=== PATIENT | male | born 1970 | race Caucasian/White ===

== ENCOUNTER → 2020-04-03 | Outpatient (CLI) | payer OTHER ==
--- NOTE | 2020-04-03 13:20 | CT ---
EXAMINATION TYPE: CT facial bones wo con DATE OF EXAM: 04/03/2020 COMPARISON: None HISTORY: ameloblastoma left mandible CT DLP: 885.9 mGycm Automated exposure control for dose reduction was used. TECHNIQUE: CT scan of the sinuses is performed without contrast, axial images are obtained, coronal r eformatted images are also reviewed. FINDINGS: The left posterior alveolus and body of the mandible demonstrates a unilocular lucent expansile lesio n measuring 2.8 x 1.8 x 1.9 cm AP, transverse, and craniocaudal (3:17, 6:26). This lesion is centered around the left mandibular first molar, and spans from the second premolar to the level of the secon d molar. There is root blunting/resorption of the first and second left left mandibular molars. There is loss of the cortex anterolaterally (3:18, 4:18), however evaluation of involvement of the adjacen t soft tissues is limited without intravenous contrast. All of the mandibular and maxillary teeth genaro ear erupted. No lymphadenopathy is seen. There are 3 stones within the right submandibular gland and [place]'s duct measuring 8 x 7 mm (3:15), 5 mm (3:12), and 1 mm (3:10). Tiny calcifications are seen within the bilateral parotid glands. The visualized parotid glands and submandibular glands are grossly symmetric with no significant asymmetr y or inflammatory stranding. The paranasal sinuses demonstrate mucosal thickening with obstruction of the bilateral ostiomeatal co mplexes. There is mucosal thickening of the ethmoid air cells. There is nonpneumatization of the righ t frontal sinus. Visualized portion of mastoid air cells show no abnormal opacification. The globes are grossly symme tric. IMPRESSION: 1. Left mandibular body unilocular expansile lytic lesion measuring 2.8 x 1.8 x 1.9 cm, centered arou nd the left mandibular first molar, as described above. Findings would be consistent with ameloblasto ma, although differential includes additional unilocular pericoronal lesions and correlation with pat hology is recommended. 2. Sialolithiasis of the right submandibular gland and parotid glands. No evidence of sialoadenitis.
== END | disposition home or self-care (01) ==
LOC: RADCTMAIN 06:35
PROVIDERS: ATTEND Dentist Oral and Maxillofacial Pathology
DX: M89.9 Disorder of bone, unspecified (principal); K11.5 Sialolithiasis
CPT/HCPCS: 70486

== ENCOUNTER → 2020-10-23 | Outpatient (CLI) | payer OTHER ==
--- NOTE | 2020-10-23 21:50 | CT ---
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 CT DLP: 588 mGycm. Automated Exposure Control for Dose Reduction was Utilized. TECHNIQUE: CT scan of the facial bones is performed without contrast. FINDINGS: There is interval resection of the lucent expansile lesion lateral aspect left horizontal ramus of mandible with sclerotic dense material presumed surgical packing and/or interval sclerosis and new overlying fixating plate extending to the mandibular angle. No new bony destruction is seen. Absent dentition at surgical site identified. Remainder mandible unremarkable. No new lesions or frac ture identified. Temporomandibular joints maintained. Paranasal sinuses remain clear. Hypoplastic right frontal sinus redemonstrated. Globes remain intact. Visualized portion of brain parenchyma is unremarkable. Stable right-sided submandibular stones measuring up to 9 mm axial image 23. Stable punctate calculus left parotid gland axial image 41. IMPRESSION: Interval successful treatment of left mandibular osseous lesion, no new suspicious osseou s lesions seen.
== END | disposition home or self-care (01) ==
LOC: RADCTMAIN 16:34
PROVIDERS: ATTEND Dentist Oral and Maxillofacial Pathology
DX: C41.1 Malignant neoplasm of mandible (principal)
CPT/HCPCS: 70486

== ENCOUNTER 2024-11-29 14:57 | Emergency (ER) | payer OTHER ==
--- NOTE | 2024-11-29 15:48 | ED ---
General Adult HPI - General Chief complaint: Trauma Stated complaint: [facility]-electricuted Time Seen by Provider: 11/29/24 15:29 Source: patient, RN notes reviewed Mode of arrival: ambulatory Limitations: no limitations - History of Present Illness Initial comments: Patient is a 54-year-old male present to the emergency department following electrocution. Incident occurred around 9 AM this morning. Patient was at work. Patient was holding onto a 277 bolt, 2 amp current in his left hand. Patient states this did lock him up in his upper body. Patient sustained injury to his left hand. Patient states his lower body was not locked up and he jumped off the ladder, 10 to 13 feet. Patient has left heel pain. Last tetanus immunization was for 5 years ago. No head injury or loss of consciousness. No neck or back pain. No chest pain or dyspnea. No abdominal pain. - Related Data Home Medications Medication Instructions Recorded Confirmed No Known Home Medications 11/29/24 11/29/24 Allergies Allergy/AdvReac Type Severity Reaction Status Date / Time morphine AdvReac Nausea & Verified 11/29/24 17:00 Vomiting Review of Systems ROS Statement: Those systems with pertinent positive or pertinent negative responses have been documented in the HPI. ROS Other: All systems not noted in ROS Statement are negative. Constitutional: Denies: fever Eyes: Denies: eye pain ENT: Denies: ear pain Respiratory: Denies: cough Cardiovascular: Denies: chest pain Gastrointestinal: Denies: abdominal pain Genitourinary: Denies: dysuria Musculoskeletal: Reports: as per HPI Skin: Reports: as per HPI Past Medical History Past Medical History: No Reported History History of Any Multi-Drug Resistant Organisms: None Reported Past Surgical History: Orthopedic Surgery Past Psychological History: No Psychological Hx Reported Smoking Status: Never smoker Past Alcohol Use History: Daily Past Drug Use History: None Reported General Exam Limitations: no limitations General appearance: alert, in no apparent distress Head exam: Present: atraumatic Eye exam: Present: normal appearance, PERRL, EOMI ENT exam: Present: normal oropharynx Neck exam: Present: normal inspection. Absent: tenderness Respiratory exam: Present: normal lung sounds bilaterally Cardiovascular Exam: Present: regular rate, normal rhythm, normal heart sounds GI/Abdominal exam: Present: soft. Absent: tenderness Extremities exam: Present: tenderness (Moderate tenderness left calcaneus) Back exam: Absent: vertebral tenderness Neurological exam: Present: alert, oriented X3, CN II-XII intact. Absent: motor sensory deficit Psychiatric exam: Present: normal affect, normal mood Skin exam: Present: other (Left hand, small finger with 3 lesions, ring finger with 1 lesion and palm region just proximal to this with 3 lesions, each lesion less than 1 cm, second-degree/open wounds. All on the palmar side.) Course Vital Signs 11/29/24 15:19 Temperature 98 F Pulse Rate 82 Respiratory 18 Rate Blood Pressure 160/108 O2 Sat by Pulse 98 Oximetry EKG Findings - EKG Results: EKG: interpreted by ERMD (PVCs present.), sinus rhythm, normal axis, normal QRS, normal ST/T Medical Decision Making - Medical Decision Making Was pt. sent in by a medical professional or institution (, PA, DISABILITY SERVICES COORDINATOR, urgent care, hospital, or correction...) When possible be specific @ -Patient was sent from clinic, urgent care Did you speak to anyone other than the patient for history (EMS, parent, family, police, friend...)? What history was obtained from this source @ -No Did you review nursing and triage notes (agree or disagree)? Why? @ -I reviewed and agree with nursing and triage notes Were old charts reviewed (outside hosp., previous admission, EMS record, old EKG, old radiological studies, urgent care reports/EKG's, correction records)? Report findings @ -No old charts were reviewed Differential Diagnosis (chest pain, altered mental status, abdominal pain women, abdominal pain men, vaginal bleeding, weakness, fever, dyspnea, syncope, headache, dizziness, GI bleed, back pain, seizure, CVA, palpatations, mental health, musculoskeletal)? @ -History of differential Musculoskeletal Muscular strain, contusion, ligament sprain, fracture, arthritis, septic arthritis, bursitis, cellulitis, muscle spasm, nerve compression, DVT, arterial occlusion, herpes zoster, electrolyte abnormality, tumor.... This is not meant to be in all inclusive list EKG interpreted by me (3pts min.). @ -As above X-rays interpreted by me (1pt min.). @ -Chest x-ray and pelvis x-ray without acute abnormality. Left calcaneus x- ray with nonspecific changes. No bony tenderness and reexam in areas of n onspecific changes CT interpreted by me (1pt min.). @ -None done U/S interpreted by me (1pt. min.). @ -None done What testing was considered but not performed or refused? (CT, X-rays, U/S, labs)? Why? @ -None What meds were considered but not given or refused? Why? @ -None Did you discuss the management of the patient with other professionals (professionals i.e. DrAnitha, PA, DISABILITY SERVICES COORDINATOR, lab, RT, psych nurse, transition social worker, patient placement coordinator, teacher, agricultural loan officer, case supervisor)? Give summary @ -Case discussed with Dr. Perry and trauma activation. Case also discussed with Dr. Rehman from [facility] who will follow-up with patient in the clinic. He was provided patient's contact number Was smoking cessation discussed for >3mins.? @ -No Was critical care preformed (if so, how long)? @ -33 minutes critical care time Were there social determinants of health that impacted care today? How? (Mary elessness, low income, unemployed, alcoholism, drug addiction, transportation, low edu. Level, literacy, decrease access to med. care, fpc, rehab)? @ -No Was there de-escalation of care discussed even if they declined (Discuss DNR or withdrawal of care, Hospice)? DNR status @ -No What co-morbidities impacted this encounter? (DM, HTN, Smoking, COPD, CAD, Cancer, CVA, ARF, Chemo, Hep., AIDS, mental health diagnosis, sleep apnea, morbid obesity)? @ -None Was patient admitted / discharged? Hospital course, mention meds given and route, prescriptions, significant lab abnormalities, going to OR and other pertinent info. @ -Patient presents with electrical shock with wounds to the left hand. Evaluation otherwise unremarkable. Patient will be discharged with follow-up with burn center. Patient updated. Hand will be wrapped and antibiotic ointment applied. Patient updated on results and plan, specifically need for follow-up with burn doctor Undiagnosed new problem with uncertain prognosis? @ -No Drug Therapy requiring intensive monitoring for toxicity (Heparin, Nitro, Insulin, Cardizem)? @ -No Were any procedures done? @ -No Diagnosis/symptom? @ -Electrical shock, left hand burn Acute, or Chronic, or Acute on Chronic? @ -Acute, acute Uncomplicated (without systemic symptoms) or Complicated (systemic symptoms)? @ -Default Side effects of treatment? @ -No Exacerbation, Progression, or Severe Exacerbation? @ -No Poses a threat to life or bodily function? How? (Chest pain, [place], [place], pneumonia, PE, COPD, DKA, ARF, appy, cholecystitis, CVA, Diverticulitis, Homicidal, Suic idal, threat to staff... and all critical care pts) @ -No - Lab Data Result diagrams: 11/29/24 15:42 11/29/24 15:42 Lab Results 11/29/24 11/29/24 11/29/24 Range/Units 15:37 15:42 15:42 WBC 9.67 (4.50-10.00) 10*3/uL RBC 5.59 (4.40-5.60) 10*6/uL Hgb 17.6 H (13.0-17.0) g/dL Hct 49.9 (39.6-50.0) % MCV 89.3 (80.0-97.0) fL MCH 31.5 (27.0-32.0) pg MCHC 35.3 (32.0-37.0) g/dL Plt Count 291 (140-440) 10*3/uL MPV 9.7 (9.5-12.2) fL Immature Gran % (Auto) 0.2 % Neutrophils % 71.3 % Lymphocytes % 20.8 % Monocytes % 6.9 % Eosinophils % 0.2 % Basophils % 0.6 % Immature Gran # 0.02 (0.00-0.04) 10*3/uL Neutrophils # 6.89 (1.80-7.70) 10*3/uL Lymphocytes # 2.01 (0.90-5.00) 10*3/uL Monocytes # 0.67 (0.20-1.00) 10*3/uL Eosinophils # 0.02 L (0.04-0.35) 10*3/uL Basophils # 0.06 (0.00-0.10) 10*3/uL PT 13.1 H (10.0-12.5) sec INR 1.2 H (<1.2) APTT 22.3 (22.0-30.0) sec Sodium (137-145) mmol/L Potassium (3.5-5.1) mmol/L Chloride (98-107) mmol/L Carbon Dioxide (22-30) mmol/L Anion Gap mmol/L BUN (9-20) mg/dL Creatinine (0.66-1.25) mg/dL Est GFR (CKD-EPI)AfAm (>60 ml/min/1.73 sqM) Est GFR (CKD-EPI)NonAf (>60 ml/min/1.73 sqM) Glucose (74-99) mg/dL Plasma Lactic Acid Emil (0.7-2.0) mmol/L Calcium (8.4-10.2) mg/dL Total Bilirubin (0.2-1.3) mg/dL AST (17-59) U/L ALT (4-49) U/L Alkaline Phosphatase (38-126) U/L Creatine Kinase (55-170) U/L Troponin I (0.000-0.034) ng/mL Total Protein (6.3-8.2) g/dL Albumin (3.5-5.0) g/dL Serum Alcohol mg/dL Blood Type Blood Type Confirm A Positive Blood Type Recheck Bld Type Recheck Status Antibody Screen Spec Expiration Date 11/29/24 11/29/24 11/29/24 Range/Units 15:42 15:42 15:42 WBC (4.50-10.00) 10*3/uL RBC (4.40-5.60) 10*6/uL Hgb (13.0-17.0) g/dL Hct (39.6-50.0) % MCV (80.0-97.0) fL MCH (27.0-32.0) pg MCHC (32.0-37.0) g/dL Plt Count (140-440) 10*3/uL MPV (9.5-12.2) fL Immature Gran % (Auto) % Neutrophils % % Lymphocytes % % Monocytes % % Eosinophils % % Basophils % % Immature Gran # (0.00-0.04) 10*3/uL Neutrophils # (1.80-7.70) 10*3/uL Lymphocytes # (0.90-5.00) 10*3/uL Monocytes # (0.20-1.00) 10*3/uL Eosinophils # (0.04-0.35) 10*3/uL Basophils # (0.00-0.10) 10*3/uL PT (10.0-12.5) sec INR (<1.2) APTT (22.0-30.0) sec Sodium 137 (137-145) mmol/L Potassium 4.8 (3.5-5.1) mmol/L Chloride 99 (98-107) mmol/L Carbon Dioxide 25 (22-30) mmol/L Anion Gap 13 mmol/L BUN 14 (9-20) mg/dL Creatinine 0.88 (0.66-1.25) mg/dL Est GFR (CKD-EPI)AfAm >90 (>60 ml/min/1.73 sqM) Est GFR (CKD-EPI)NonAf >90 (>60 ml/min/1.73 sqM) Glucose 88 (74-99) mg/dL Plasma Lactic Acid Emil 1.6 (0.7-2.0) mmol/L Calcium 10.9 H (8.4-10.2) mg/dL Total Bilirubin 1.1 (0.2-1.3) mg/dL AST 35 (17-59) U/L ALT 19 (4-49) U/L Alkaline Phosphatase 55 (38-126) U/L Creatine Kinase 334 H (55-170) U/L Troponin I <0.012 (0.000-0.034) ng/mL Total Protein 8.6 H (6.3-8.2) g/dL Albumin 5.5 H (3.5-5.0) g/dL Serum Alcohol <10 mg/dL Blood Type Blood Type Confirm Blood Type Recheck Bld Type Recheck Status Antibody Screen Spec Expiration Date 11/29/24 Range/Units 15:42 WBC (4.50-10.00) 10*3/uL RBC (4.40-5.60) 10*6/uL Hgb (13.0-17.0) g/dL Hct (39.6-50.0) % MCV (80.0-97.0) fL MCH (27.0-32.0) pg MCHC (32.0-37.0) g/dL Plt Count (140-440) 10*3/uL MPV (9.5-12.2) fL Immature Gran % (Auto) % Neutrophils % % Lymphocytes % % Monocytes % % Eosinophils % % Basophils % % Immature Gran # (0.00-0.04) 10*3/uL Neutrophils # (1.80-7.70) 10*3/uL Lymphocytes # (0.90-5.00) 10*3/uL Monocytes # (0.20-1.00) 10*3/uL Eosinophils # (0.04-0.35) 10*3/uL Basophils # (0.00-0.10) 10*3/uL PT (10.0-12.5) sec INR (<1.2) APTT (22.0-30.0) sec Sodium (137-145) mmol/L Potassium (3.5-5.1) mmol/L Chloride (98-107) mmol/L Carbon Dioxide (22-30) mmol/L Anion Gap mmol/L BUN (9-20) mg/dL Creatinine (0.66-1.25) mg/dL Est GFR (CKD-EPI)AfAm (>60 ml/min/1.73 sqM) Est GFR (CKD-EPI)NonAf (>60 ml/min/1.73 sqM) Glucose (74-99) mg/dL Plasma Lactic Acid Emil (0.7-2.0) mmol/L Calcium (8.4-10.2) mg/dL Total Bilirubin (0.2-1.3) mg/dL AST (17-59) U/L ALT (4-49) U/L Alkaline Phosphatase (38-126) U/L Creatine Kinase (55-170) U/L Troponin I (0.000-0.034) ng/mL Total Protein (6.3-8.2) g/dL Albumin (3.5-5.0) g/dL Serum Alcohol mg/dL Blood Type A Positive Blood Type Confirm Blood Type Recheck No Previous Record Bld Type Recheck Status CABO Indicated Antibody Screen NEGATIVE Spec Expiration Date 12/02/2024 - 2341 Critical Care Time Critical Care Time: Yes Disposition Clinical Impression: Electric shock, Burn of left hand Disposition: HOME SELF-CARE Condition: Stable Instructions (If sedation given, give patient instructions): Electrical Traylor in Adults (ED), Second-Degree Burn (ED) Additional Instructions: Please follow-up with Dr. Rehman, his office will contact you for appointment. He is out of [facility]/burn center. Please also follow-up with primary care physician in the next couple of days for recheck. Twice daily wash wounds with soap and water, apply antibiotic ointment and nonadherent dressing. Return for fever, color change, increased pain, difficulty moving fingers, loss of sensation, increased swelling, worsening symptoms or other concerns. Is patient prescribed a controlled substance at d/c from ED?: No Referrals: None,Stated [Primary Care Provider] - 1-2 days Lasha Rehman MD [REFERRING] - 1-2 days Bay Bernal MD [STAFF PHYSICIAN] - 1-2 days Forms: Area PCPs Time of Disposition: 17:27
[2024-11-29 16:01] LABS: Basophils # (A) 0.06 10*3/uL (0.00-0.10); Basophils % (A) 0.6 %; Eosinophils # (A) 0.02 10*3/uL (0.04-0.35); Eosinophils % (A) 0.2 %; HCT 49.9 % (39.6-50.0); HGB 17.6 g/dL (13.0-17.0); Lymphocytes # (A) 2.01 10*3/uL (0.90-5.00); Lymphocytes % (A) 20.8 %; MCH 31.5 pg (27.0-32.0); MCHC 35.3 g/dL (32.0-37.0); MCV 89.3 fL (80.0-97.0); Mean Platelet Volume 9.7 fL (9.5-12.2); Monocytes # (A) 0.67 10*3/uL (0.20-1.00); Monocytes % (A) 6.9 %; Neutrophils # (A) 6.89 10*3/uL (1.80-7.70); Neutrophils % (A) 71.3 %; Platelet Count 291 10*3/uL (140-440); RBC 5.59 10*6/uL (4.40-5.60); RDW 12.6 % (11.5-14.5); WBC 9.67 10*3/uL (4.50-10.00)
--- NOTE | 2024-11-29 16:03 | XR ---
EXAMINATION TYPE: XR chest 1V portable, XR calcaneus 2V LT, XR pelvis AP view DATE OF EXAM: 11/29/2024 3:54 PM COMPARISON: None CLINICAL INDICATION: Male, 54 years old with history of trauma, fall from ladder after being electroc uted, pain, FINDINGS: Chest: The cardiomediastinal silhouette, aorta, and pulmonary vasculature are within normal limits. Lungs and pleural spaces are clear. Pelvis: There is severe symmetric and intact as does the pubic symphysis and SI joints. No acute fracture, orozco bluxation, or dislocation. Left calcaneus: Ossific density measuring 7 mm at the Achilles insertion suggesting a fragmented spur but of unknown chronicity. No flattening of Boehler's angle. Obliquely oriented lucency projecting along the dorsal of the midfoot probably projectional. Early for any point tenderness here. Subtalar joint appears ali gned. IMPRESSION: 1. Chest: No acute cardiopulmonary process. 2. Pelvis: No acute osseous abnormality seen. 3. Left calcaneus: A 7 mm fragmented spur at the Achilles insertion. The chronicity is unclear and it may be old. Correlate for any point tenderness here. In addition, there is an obliquely oriented agustin ency projecting along the dorsum of the midfoot on the lateral view. This may be projectional artifac t. Again, correlate for point tenderness to exclude a nondisplaced fracture here. [facility], Workstation: [facility], 11/29/2024 4:00 PM
[2024-11-29] MEDS: SODIUM CHLORIDE 0.9% 1,000 ML IV STA (16:08)
[2024-11-29 16:15] LABS: INR 1.2 (<1.2); Partial Thromboplastin Time 22.3 sec (22.0-30.0); Prothrombin Time 13.1 sec (10.0-12.5)
[2024-11-29 16:18] LABS: ALT 19 U/L (4-49); African American GFR (CKD) >90 (>60 ml/min/1.73 sqM); Alcohol <10 mg/dL; Anion Gap 13 mmol/L; Blood Urea Nitrogen 14 mg/dL (9-20); Calcium 10.9 mg/dL (8.4-10.2); Carbon Dioxide 25 mmol/L (22-30); Chloride 99 mmol/L (98-107); Creatine Kinase 334 U/L (55-170); Glucose 88 mg/dL (74-99); Non-African American GFR(CKD) >90 (>60 ml/min/1.73 sqM); Sodium 137 mmol/L (137-145); Total Bilirubin 1.1 mg/dL (0.2-1.3)
[2024-11-29 16:22] LABS: AST 35 U/L (17-59); Albumin 5.5 g/dL (3.5-5.0); Alkaline Phosphatase 55 U/L (38-126); Potassium 4.8 mmol/L (3.5-5.1); Total Protein 8.6 g/dL (6.3-8.2)
[2024-11-29 16:33] VITALS: TEMP 98
[2024-11-29 17:49] VITALS: BP 161/100; PULSE 79; RESP 24
== END 2024-11-29 18:05 | disposition home or self-care (01) ==
LOC: EC 14:57
DX: T23.002A Burn of unspecified degree of left hand, unspecified site, initial encounter (principal); T75.4XXA Electrocution, initial encounter; Z88.5 Allergy status to narcotic agent; W86.8XXA Exposure to other electric current, initial encounter; Y99.0 Civilian activity done for income or pay
CPT/HCPCS: 16000; 36415; 71045; 72170; 80053; 80320; 82550; 83605; 84484; 85025; 85610; 85730; 86850; 86900; 86901; 93005; 96360; 99285

== ENCOUNTER 2025-01-14 22:36 | Emergency (ER) | payer OTHER ==
--- NOTE | 2025-01-14 23:13 | ED ---
Arrhythmia/Palpitations HPI - General Chief Complaint: Arrhythmia/Palpitations Stated Complaint: Heart racing, left sided facial numbness Time Seen by Provider: 01/14/25 22:44 Source: patient Mode of arrival: ambulatory Limitations: no limitations - History of Present Illness Initial Comments: This patient is a 54-year-old man who presents with complaint that he feels like his heart rate was fast. Patient states that this did come on about 2 hours ag o, while he was at rest. Patient states that also feels tight across his upper chest. When the symptoms did not resolve he felt he should be seen here. He notes that his blood pressure was also high. He states he had been told he had a high blood pressure a while ago but was not on any medications. About a month and a half ago he had an electrocution injury and states that his blood pressure has been much higher since that time. No dyspnea, diaphoresis, nausea or vomiting. Patient does note that he did have a few beers yesterday. MD Complaint: "heart racing" Onset/Timin -: hour(s) Context: occurred during rest Associated Symptoms: chest pain - Related Data Previous Rx's Medication Instructions Recorded lisinopriL [Prinivil] 10 mg PO DAILY #30 tab 01/15/25 Allergies Allergy/AdvReac Type Severity Reaction Status Date / Time morphine AdvReac Nausea & Verified 01/14/25 22:42 Vomiting Review of Systems ROS Statement: Those systems with pertinent positive or pertinent negative responses have been documented in the HPI. ROS Other: All systems not noted in ROS Statement are negative. Constitutional: Denies: fever, chills Eyes: Denies: vision change Respiratory: Denies: cough, dyspnea Cardiovascular: Reports: chest pain, palpitations. Denies: dyspnea on exertion, orthopnea, edema, syncope Gastrointestinal: Denies: abdominal pain, nausea, vomiting, diarrhea Genitourinary: Denies: dysuria, hematuria Musculoskeletal: Denies: back pain Skin: Denies: rash Neurological: Denies: headache, weakness, numbness Psychiatric: Reports: anxiety Past Medical History Past Medical History: No Reported History History of Any Multi-Drug Resistant Organisms: None Reported Past Surgical History: Orthopedic Surgery Past Psychological History: No Psychological Hx Reported Smoking Status: Never smoker Past Alcohol Use History: Daily Past Drug Use History: None Reported General Exam Limitations: no limitations General appearance: alert, anxious Head exam: Present: atraumatic, normocephalic Eye exam: Present: normal appearance. Absent: scleral icterus, conjunctival injection ENT exam: Present: normal oropharynx Neck exam: Present: normal inspection Respiratory exam: Present: normal lung sounds bilaterally. Absent: respiratory distress, wheezes, rales, rhonchi, stridor, accessory muscle use Cardiovascular Exam: Present: regular rate, normal rhythm, normal heart sounds. Absent: systolic murmur, diastolic murmur, rubs, gallop GI/Abdominal exam: Present: soft. Absent: distended, tenderness, guarding, rebound, rigid, mass Extremities exam: Present: normal inspection, normal capillary refill. Absent: pedal edema, calf tenderness Back exam: Present: normal inspection. Absent: CVA tenderness (R), CVA tenderness (L) Neurological exam: Present: alert, oriented X3. Absent: motor sensory deficit Skin exam: Present: warm, dry, intact, normal color. Absent: rash Course Vital Signs 01/14/25 01/14/25 01/15/25 22:40 23:13 00:49 Temperature 98.5 F Pulse Rate 79 71 77 Respiratory 18 19 18 Rate Blood Pressure 197/121 167/110 O2 Sat by Pulse 98 96 97 Oximetry 01/15/25 02:31 Temperature 98.2 F Pulse Rate 82 Respiratory 18 Rate Blood Pressure 153/97 O2 Sat by Pulse 96 Oximetry EKG Findings - EKG Results: EKG: interpreted by MATTHEW, sinus rhythm (Rate 73 bpm), normal axis, normal QRS - Blocks, [place], Hypertrophy, ST Abn: Repolarization changes or abnormalities: nonspecific abnormality, ST segment, and/or T wave Medical Decision Making - Medical Decision Making The patient had chest x-ray that I interpreted as showing no acute infiltrate, no pneumothorax or congestive heart failure Was pt. sent in by a medical professional or institution (, PA, CODING DIRECTOR, urgent care, hospital, or [facility]...) When possible be specific @ -[No] Did you speak to anyone other than the patient for history (EMS, parent, family, police, friend...)? What history was obtained from this source @ -[No] Did you review nursing and triage notes (agree or disagree)? Why? @ -[I reviewed and agree with nursing and triage notes] Were old charts reviewed (outside hosp., previous admission, EMS record, old EKG, old radiological studies, urgent care reports/EKG's, [facility] records)? Report findings @ -[No old charts were reviewed] Differential Diagnosis (chest pain, altered mental status, abdominal pain women, abdominal pain men, vaginal bleeding, weakness, fever, dyspnea, syncope, headache, dizziness, GI bleed, back pain, seizure, CVA, palpatations, mental health, musculoskeletal)? @ -[Amphetamine Toxicity Anxiety Disorders Apnea, Sleep Cocaine-Related Cardiomyopathy Heart Failure Hyperthyroidism, Thyroid Storm, and Graves Disease Hypertrophic Cardiomyopathy Myocardial Infarction Phencyclidine Toxicity Primary Aldosteronism Stroke, Hemorrhagic Stroke, Ischemic EKG interpreted by me (3pts min.). @ -[I interpreted as above] X-rays interpreted by me (1pt min.). @ -[I interpreted as above CT interpreted by me (1pt min.). @ -[None done] U/S interpreted by me (1pt. min.). @ -[None done] What testing was considered but not performed or refused? (CT, X-rays, U/S, labs)? Why? @ -[None] What meds were considered but not given or refused? Why? @ -[None] Did you discuss the management of the patient with other professionals (professionals i.e. , PA, CODING DIRECTOR, lab, RT, psych nurse, social service manager, technology advisor, teacher, complaint investigations officer, hospice case manager)? Give summary @ -[No] Was smoking cessation discussed for >3mins.? @ -[No] Was critical care preformed (if so, how long)? @ -[No] Were there social determinants of health that impacted care today? How? (Mary elessness, low income, unemployed, alcoholism, drug addiction, transportation, low edu. Level, literacy, decrease access to med. care, care home, rehab)? @ -[No] Was there de-escalation of care discussed even if they declined (Discuss DNR or withdrawal of care, Hospice)? DNR status @ -[No] What co-morbidities impacted this encounter? (DM, HTN, Smoking, COPD, CAD, Cancer, CVA, ARF, Chemo, Hep., AIDS, mental health diagnosis, sleep apnea, morbid obesity)? @ -[Hypertension Was patient admitted / discharged? Hospital course, mention meds given and route, prescriptions, significant lab abnormalities, going to OR and other pertinent info. @ -[This patient is 54-year-old man presenting for evaluation related to palpitations and hypertension. The patient did have recent electrocution injury and it appears that at that time he was found to be hypertensive. Probably longstanding hypertension but he was not aware of it. Discussed the rationale for lowering blood pressure over next weeks. The patient will have close follow-up to ensure that his blood pressure does come down. Discussed return parameters. Undiagnosed new problem with uncertain prognosis? @ -[No] Drug Therapy requiring intensive monitoring for toxicity (Heparin, Nitro, Insulin, Cardizem)? @ -[No] Were any procedures done? @ -[No] Diagnosis/symptom? @ -[Acute on chronic hypertension Acute, or Chronic, or Acute on Chronic? @ -[Acute on chronic Uncomplicated (without systemic symptoms) or Complicated (systemic symptoms)? @ -[Uncomplicated Side effects of treatment? @ -[No] Exacerbation, Progression, or Severe Exacerbation? @ -[No] Poses a threat to life or bodily function? How? (Chest pain, [place], [place], pneumonia, PE, COPD, DKA, ARF, appy, cholecystitis, CVA, Diverticulitis, Homicidal, Suicidal, threat to staff... and all critical care pts) @ -[Yes discussed that there is risk to organ function and life with l ongstanding untreated hypertension and patient understands and will follow-up All treatments are based on ideal body weight as in ED triage - Lab Data Result diagrams: 01/14/25 23:51 01/14/25 23:51 Lab Results 01/14/25 01/14/25 01/14/25 Range/Units 23:51 23:51 23:51 WBC 5.60 (4.50-10.00) 10*3/uL RBC 5.09 (4.40-5.60) 10*6/uL Hgb 15.6 (13.0-17.0) g/dL Hct 45.6 (39.6-50.0) % MCV 89.6 (80.0-97.0) fL MCH 30.6 (27.0-32.0) pg MCHC 34.2 (32.0-37.0) g/dL Plt Count 300 (140-440) 10*3/uL MPV 10.1 (9.5-12.2) fL Immature Gran % (Auto) 0.5 % Neutrophils % 47.3 % Lymphocytes % 38.4 % Monocytes % 11.1 % Eosinophils % 1.8 % Basophils % 0.9 % Immature Gran # 0.03 (0.00-0.04) 10*3/uL Neutrophils # 2.65 (1.80-7.70) 10*3/uL Lymphocytes # 2.15 (0.90-5.00) 10*3/uL Monocytes # 0.62 (0.20-1.00) 10*3/uL Eosinophils # 0.10 (0.04-0.35) 10*3/uL Basophils # 0.05 (0.00-0.10) 10*3/uL PT 10.9 (10.0-12.5) sec INR 1.0 (<1.2) APTT 22.9 (22.0-30.0) sec Sodium 137 (137-145) mmol/L Potassium 3.8 (3.5-5.1) mmol/L Chloride 104 (98-107) mmol/L Carbon Dioxide 23 (22-30) mmol/L Anion Gap 10 mmol/L BUN 13 (9-20) mg/dL Creatinine 0.83 (0.66-1.25) mg/dL Est GFR (CKD-EPI)AfAm >90 (>60 ml/min/1.73 sqM) Est GFR (CKD-EPI)NonAf >90 (>60 ml/min/1.73 sqM) Glucose 135 H (74-99) mg/dL Calcium 9.8 (8.4-10.2) mg/dL Magnesium 2.1 (1.6-2.3) mg/dL Total Bilirubin 0.4 (0.2-1.3) mg/dL AST 24 (17-59) U/L ALT 21 (4-49) U/L Alkaline Phosphatase 55 (38-126) U/L Troponin I (0.000-0.034) ng/mL Total Protein 7.0 (6.3-8.2) g/dL Albumin 4.5 (3.5-5.0) g/dL 01/14/25 Range/Units 23:51 WBC (4.50-10.00) 10*3/uL RBC (4.40-5.60) 10*6/uL Hgb (13.0-17.0) g/dL Hct (39.6-50.0) % MCV (80.0-97.0) fL MCH (27.0-32.0) pg MCHC (32.0-37.0) g/dL Plt Count (140-440) 10*3/uL MPV (9.5-12.2) fL Immature Gran % (Auto) % Neutrophils % % Lymphocytes % % Monocytes % % Eosinophils % % Basophils % % Immature Gran # (0.00-0.04) 10*3/uL Neutrophils # (1.80-7.70) 10*3/uL Lymphocytes # (0.90-5.00) 10*3/uL Monocytes # (0.20-1.00) 10*3/uL Eosinophils # (0.04-0.35) 10*3/uL Basophils # (0.00-0.10) 10*3/uL PT (10.0-12.5) sec INR (<1.2) APTT (22.0-30.0) sec Sodium (137-145) mmol/L Potassium (3.5-5.1) mmol/L Chloride (98-107) mmol/L Carbon Dioxide (22-30) mmol/L Anion Gap mmol/L BUN (9-20) mg/dL Creatinine (0.66-1.25) mg/dL Est GFR (CKD-EPI)AfAm (>60 ml/min/1.73 sqM) Est GFR (CKD-EPI)NonAf (>60 ml/min/1.73 sqM) Glucose (74-99) mg/dL Calcium (8.4-10.2) mg/dL Magnesium (1.6-2.3) mg/dL Total Bilirubin (0.2-1.3) mg/dL AST (17-59) U/L ALT (4-49) U/L Alkaline Phosphatase (38-126) U/L Troponin I <0.012 (0.000-0.034) ng/mL Total Protein (6.3-8.2) g/dL Albumin (3.5-5.0) g/dL Disposition Clinical Impression: Palpitations, Hypertension Disposition: HOME SELF-CARE Condition: Good Instructions (If sedation given, give patient instructions): Heart Palpitations (ED), Hypertension (ED) Prescriptions: lisinopriL [Prinivil] 10 mg PO DAILY #30 tab Is patient prescribed a controlled substance at d/c from ED?: No Referrals: Melquiades Urbina, [REFERRING] - 1-2 days None,Stated [Primary Care Provider] - 1-2 days
[2025-01-15] MEDS: LORazepam 1 MG/0.5 ML VIAL IV STA (00:22)
[2025-01-15] MEDS: LABETALOL 100 MG TAB PO STA (00:22)
[2025-01-15 00:51] VITALS: RESP 18
[2025-01-15 00:51] LABS: Basophils # (A) 0.05 10*3/uL (0.00-0.10); Basophils % (A) 0.9 %; Eosinophils % (A) 1.8 %; HCT 45.6 % (39.6-50.0); HGB 15.6 g/dL (13.0-17.0); Lymphocytes # (A) 2.15 10*3/uL (0.90-5.00); Lymphocytes % (A) 38.4 %; MCH 30.6 pg (27.0-32.0); MCHC 34.2 g/dL (32.0-37.0); MCV 89.6 fL (80.0-97.0); Mean Platelet Volume 10.1 fL (9.5-12.2); Monocytes # (A) 0.62 10*3/uL (0.20-1.00); Monocytes % (A) 11.1 %; Neutrophils # (A) 2.65 10*3/uL (1.80-7.70); Neutrophils % (A) 47.3 %; Platelet Count 300 10*3/uL (140-440); RBC 5.09 10*6/uL (4.40-5.60)
[2025-01-15 01:00] LABS: Partial Thromboplastin Time 22.9 sec (22.0-30.0); Prothrombin Time 10.9 sec (10.0-12.5)
--- NOTE | 2025-01-15 01:01 | XR ---
EXAM: XR Chest, 2 Views CLINICAL HISTORY: Dysrhythmia TECHNIQUE: Frontal and lateral views of the chest. COMPARISON: Chest radiograph 11/29/2024 FINDINGS: Lungs: Unremarkable. No consolidation. Pleural space: Unremarkable. No pneumothorax. Heart: Unremarkable. No cardiomegaly. Mediastinum: Unremarkable. Normal mediastinal contour. Bones/joints: There are degenerative changes of the spine. No acute fracture. IMPRESSION: No acute findings in the chest.
[2025-01-15 01:02] LABS: ALT 21 U/L (4-49); AST 24 U/L (17-59); African American GFR (CKD) >90 (>60 ml/min/1.73 sqM); Albumin 4.5 g/dL (3.5-5.0); Alkaline Phosphatase 55 U/L (38-126); Anion Gap 10 mmol/L; Blood Urea Nitrogen 13 mg/dL (9-20); Calcium 9.8 mg/dL (8.4-10.2); Carbon Dioxide 23 mmol/L (22-30); Chloride 104 mmol/L (98-107); Glucose 135 mg/dL (74-99); Magnesium 2.1 mg/dL (1.6-2.3); Non-African American GFR(CKD) >90 (>60 ml/min/1.73 sqM); Potassium 3.8 mmol/L (3.5-5.1); Sodium 137 mmol/L (137-145); Total Bilirubin 0.4 mg/dL (0.2-1.3)
[2025-01-15 02:39] VITALS: BP 153/97; PULSE 82; TEMP 98.2
== END 2025-01-15 02:39 | disposition home or self-care (01) ==
LOC: EC 22:36
DX: R00.2 Palpitations (principal); I10 Essential (primary) hypertension; Z88.5 Allergy status to narcotic agent
CPT/HCPCS: 36415; 93005; 80053; 83735; 84484; 85025; 85610; 85730; 71046; 99285; 96374; J2060